=== PATIENT | female | born 1945 ===

== ENCOUNTER 2018-03-18 08:21 | Day surgery (SDC) | payer MEDICARE, MEDICAID ==
[~2018-03-18] VITALS: Ht 152.4 cm; Wt 84.4 kg
[~2018-03-18 08:21] MED LIST: FUROSEMIDE20 MG PO; GLIPIZIDE ER10 MG PO; GLUCOPHAGE500 MG PO; LEVOTHYROXINE25 MCG PO; METOPROLOL TART25 MG PO; VITAMIN D1000 UNIT PO; WARFARIN SODIUM5 MG PO
== END 2018-03-18 10:54 | disposition home or self-care (01) ==
LOC: DS 08:21 → OPS 08:21 → DSVR 08:21 → OPS 09:30 → DS 09:30 → OPS 10:54
PROVIDERS: Ophthalmology
PROC: 08RK3JZ Replacement of Left Lens with Synthetic Substitute, Percutaneous Approach (ICD-10-PCS; principal; 2018-03-18 09:30)
PROC: 08933ZZ Drainage of Left Anterior Chamber, Percutaneous Approach (ICD-10-PCS; 2018-03-18 09:30)
DX: E11.36 Type 2 diabetes mellitus with diabetic cataract (principal); H25.12 Age-related nuclear cataract, left eye; E11.39 Type 2 diabetes mellitus with other diabetic ophthalmic complication; H40.1131 Primary open-angle glaucoma, bilateral, mild stage; M19.90 Unspecified osteoarthritis, unspecified site; Z79.84 Long term (current) use of oral hypoglycemic drugs; Z79.899 Other long term (current) drug therapy; Z95.0 Presence of cardiac pacemaker
CPT/HCPCS: 00140; J2250